=== PATIENT | female | born 1975 | race Hispanic/Latino ===

== ENCOUNTER 2023-07-20 19:03 | Emergency (ER) | payer BC, OTHER ==
[~2023-07-20] VITALS: Ht 154.9 cm; Wt 96.6 kg
[2023-07-20] MEDS ORDERED: HYDROCODONE/ACETAMINOPHEN 5/325 MG TAB PO ONE (20:00)
[2023-07-20] MEDS ORDERED: KETOROLAC 60 MG VIAL (30MG/ML) IM ONE (20:00)
[2023-07-20 20:30] LABS: APPEARANCE,URINE CLEAR (CLEAR); BILIRUBIN,URINE NEGATIVE (NEGATIVE); GLUCOSE, URINE (UA) NEGATIVE (NEGATIVE); KETONES,URINE NEGATIVE (NEGATIVE); LEUKOCYTE ESTERASE ,URINE 75 Leu/uL (NEGATIVE); NITRATE,URINE NEGATIVE (NEGATIVE); OCCULT BLOOD,URINE NEGATIVE (NEGATIVE); PH,URINE 6.5 (5.0-8.0); PROTEIN,URINE NEGATIVE (NEGATIVE); UROBILINOGEN,URINE 0.2 mg/dL (0.2-1.0)
[2023-07-20 20:31] LABS: HCG,QUALITATIVE URINE NEGATIVE (NEGATIVE)
[2023-07-20 20:32] LABS: ADD UA MICROSCOPIC YES
[2023-07-20 20:40] LABS: BACTERIA,URINE RARE /HPF (None Seen); SQUAMOUS EPITHELIAL CELL,UR FEW /HPF (0-2)
[2023-07-20 20:47] LABS: COLOR,URINE LIGHT-YELLOW (YELLOW)
[2023-07-20] MEDS ORDERED: IBUP-2077 PO (21:47)
[2023-07-20 21:51] VITALS: BP 120/90; PULSE 80; RESP 16; O2SAT 99
== END 2023-07-20 21:54 | disposition home or self-care (01) ==
LOC: EDH 19:03
DX: S20.211A Contusion of right front wall of thorax, initial encounter (principal); I10 Essential (primary) hypertension; Z88.2 Allergy status to sulfonamides; X58.XXXA Exposure to other specified factors, initial encounter; Y93.89 Activity, other specified; Y92.89 Other specified places as the place of occurrence of the external cause; Y99.8 Other external cause status
CPT/HCPCS: 99284; 87088; 81001; 81025; 71101; 96372; J1885